=== PATIENT | female | born 1990 | race African-American/Black ===

== ENCOUNTER 2020-12-28 12:07 | Emergency (ER) | payer BC, SELFPAY ==
[2020-12-28] MEDS ORDERED: DIPHENHYDRAMINE 25 MG TAB/CAP ONE (13:25)
[2020-12-28] MEDS ORDERED: dexAMETHasone 10 MG/ML VIAL ONE (13:26)
[2020-12-28] MEDS ORDERED: FAMOTIDINE 20 MG TAB ONE (13:26)
--- NOTE | 2020-12-28 13:51 | EDPHYS ---
Physician Documentation [facility] Name: Tiffanie Hawkins Age: 30 yrs Sex: Female : 1990 Arrival Date: 12/28/2020 Time: 12:09 Bed Treatment Private MD: ED Physician Jodie Valdovinos HPI: 12/28 12:54 This 30 yrs old Black Female presents to ER via Ambulatory with complaints of Rash. pm1 12:54 The patient's rash thought to be caused by an unknown cause, Possibly from exposure to pm1 something at work. The rash is located on the face, right hand, left hand and back of neck. The rash can be described as papular, raised, vesicular. Onset: The symptoms/episode began/occurred 2 week(s) ago. Associated signs and symptoms: Pertinent positives: itching, Pertinent negatives: difficulty breathing, fever, swelling of lips, swelling of throat, swelling of tongue, vomiting, wheezing. Severity of symptoms: in the emergency department the symptoms are worse. Treatment given at home: OTC lotion/cream. The patient has not recently seen a physician. Historical: - Allergies: 12:19 No Known Allergies; aa5 - PMHx: 12:19 None; aa5 - PSHx: 12:19 None; L knee scope; aa5 - Immunization history:: Client reports receiving the 1st dose of the Covid vaccine. - Social history:: Smoking status: Patient reports the use of cigarette tobacco products, 2-3 cigarettes a day . ROS: 12:54 Constitutional: Negative for fever, chills, and weight loss. pm1 12:54 Cardiovascular: Negative for chest pain, palpitations, and edema, Respiratory: Negative for shortness of breath, cough, wheezing, and pleuritic chest pain, Abdomen/GI: Negative for abdominal pain, nausea, vomiting, diarrhea, and constipation. 12:54 Skin: Positive for rash, of the face, right hand, left hand and neck. 12:54 All other systems are negative. Exam: 12:54 Constitutional: This is a well developed, well nourished patient who is awake, alert, pm1 and in no acute distress. Head/Face: Normocephalic, atraumatic. 12:54 Eyes: Exam is negative for acute changes, Extraocular movements: no acute changes, Conjunctiva: no acute changes, no injection. 12:54 ENT: Mouth: Lips: normal, moist, Oral mucosa: normal, pink and intact, moist. 12:54 Cardiovascular: Exam negative for acute changes, Rate: normal, Rhythm: regular, Pulses: no pulse deficits are appreciated. 12:54 Respiratory: Exam negative for acute changes, respiratory distress, shortness of breath. 12:54 Skin: consistent with contact dermatitis, on the right hand, left hand and back of neck and face. 12:54 Neuro: Exam negative for acute changes, Orientation: is normal, Mentation: is normal, Motor: is normal, moves all fours, Gait: is steady, at a normal pace, without difficulty. Vital Signs: 12:20 BP 117 / 68; Pulse 76; Resp 18 S; Temp 98.0(TE); Pulse Ox 100% on R/A; Weight 90.72 kg aa5 (R); Height 5 ft. 7 in. (170.18 cm) (R); 12:20 Body Mass Index 31.32 (90.72 kg, 170.18 cm) aa5 MDM: 12:47 Patient medically screened. pm1 13:48 Data reviewed: vital signs. Data interpreted: Pulse oximetry: on room air is 100 %. pm1 Interpretation: normal. 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 Administered Medications: 13:07 Drug: Decadron (dexamethasone) 10 mg Route: IM; Site: left deltoid; jt3 13:07 Drug: Pepcid (famotidine) 20 mg Route: PO; jt3 13:07 Drug: Benadryl (diphenhydrAMINE) 25 mg Route: PO; jt3 Disposition: 12/29 08:49 Co-signature as Attending Physician, Jodie Valdovinos MD I agree with the assessment and sp3 plan of care. Disposition Summary: 12/28/20 13:50 Discharge Ordered Location: Home pm1 Problem: new pm1 Symptoms: have improved pm1 Condition: Stable pm1 Diagnosis - Rash and other nonspecific skin eruption pm1 Followup: pm1 - With: Emergency Department - When: As needed - Reason: Worsening of condition Followup: pm1 - With: Private Physician - When: 2 - 3 days - Reason: Recheck today's complaints, Continuance of care, Re-evaluation by your physician Discharge Instructions: - Discharge Summary Sheet pm1 - Rash, Adult pm1 Forms: - Medication Reconciliation Form pm1 - Thank You Letter pm1 - Antibiotic Education pm1 - Prescription Opioid Use pm1 Prescriptions: - Benadryl 25 mg Oral Capsule - take 1 capsule by ORAL route every 6 hours As needed; 30 tablet; Refills: 0, pm1 Product Selection Permitted - Pepcid 20 mg Oral Tablet - take 1 tablet by ORAL route every 12 hours for 10 days; 20 tablet; Refills: 0, pm1 Product Selection Permitted - Medrol (Adrien) 4 mg Oral Tablets, Dose Pack - take 1 tablet by ORAL route as directed - follow package instructions; 1 pm1 packet; Refills: 0, Product Selection Permitted Signatures: Arely Davidson, RN RN aa5 Honorio Mccormack NP [employer] pm1 Jodie Valdovinos MD MD sp3 Yung Menon RN RN jt3
--- NOTE | 2020-12-28 13:51 | ER ---
Nurse's Notes [facility] Name: Tiffanie Hawkins Age: 30 yrs Sex: Female : 1990 Arrival Date: 12/28/2020 Time: 12:09 Bed Treatment Private MD: Diagnosis: Rash and other nonspecific skin eruption Presentation: 12/28 12:19 Chief complaint: Patient states: "I've had this rash on my hands for about 2 weeks now aa5 and now it's spreading to my neck and my face and it's itching". Coronavirus screen: At this time, the client does not indicate any symptoms associated with coronavirus-19. Ebola Screen: No symptoms or risks identified at this time. Initial Sepsis Screen: Does the patient meet any 2 criteria? No. Patient's initial sepsis screen is negative. Does the patient have a suspected source of infection? No. Patient's initial sepsis screen is negative. Risk Assessment: Do you want to hurt yourself or someone else? Patient reports no desire to harm self or others. Onset of symptoms was December 2020. 12:19 Acuity: JACLYN 5 aa5 12:19 Method Of Arrival: Ambulatory aa5 Historical: - Allergies: 12:19 No Known Allergies; aa5 - PMHx: 12:19 None; aa5 - PSHx: 12:19 None; L knee scope; aa5 - Immunization history:: Client reports receiving the 1st dose of the Covid vaccine. - Social history:: Smoking status: Patient reports the use of cigarette tobacco products, 2-3 cigarettes a day . Screenin:38 Abuse screen: Denies threats or abuse. Denies injuries from another. Nutritional jt3 screening: No deficits noted. Tuberculosis screening: No symptoms or risk factors identified. Fall Risk None identified. Assessment: 12:38 Pain: Denies pain. Derm: Reports increased itching, Pt. has rash to bilateral hands jt3 inbetween her fingers. Pt. also has rash on neck and face. Bumps as well. Vital Signs: 12:20 BP 117 / 68; Pulse 76; Resp 18 S; Temp 98.0(TE); Pulse Ox 100% on R/A; Weight 90.72 kg aa5 (R); Height 5 ft. 7 in. (170.18 cm) (R); 12:20 Body Mass Index 31.32 (90.72 kg, 170.18 cm) aa5 ED Course: 12:09 Patient arrived in ED. as 12:19 Triage completed. aa5 12:19 Arm band placed on. aa5 12:24 Yung Menon, RN is Primary Nurse. jt3 12:34 Honorio Mccormack NP is PHCP. pm1 12:34 Jodie Valdovinos MD is Attending Physician. pm1 12:38 Patient has correct armband on for positive identification. Call light in reach. jt3 12:38 No provider procedures requiring assistance completed. jt3 Administered Medications: 13:07 Drug: Decadron (dexamethasone) 10 mg Route: IM; Site: left deltoid; jt3 13:07 Drug: Pepcid (famotidine) 20 mg Route: PO; jt3 13:07 Drug: Benadryl (diphenhydrAMINE) 25 mg Route: PO; jt3 Outcome: 13:50 Discharge ordered by MD. pm1 13:56 Discharged to home ambulatory. 5 13:56 Condition: improved 13:56 Discharge instructions given to Instructed on discharge instructions, Prescriptions given X 3. 13:56 Patient left the ED. ch5 Signatures: Tasha Welsh Audri, RN RN aa5 Honorio Mccormack NP [employer] CHIEF pm1 Bakari Golden RN RN ch5 Yung Menon RN RN jt3
[2020-12-28 14:28] VITALS: BP 117/68; TEMP 98; O2SAT 100
== END 2020-12-28 13:56 | disposition home or self-care (01) ==
LOC: ER 12:07
DX: R21 Rash and other nonspecific skin eruption (principal); F17.210 Nicotine dependence, cigarettes, uncomplicated
CPT/HCPCS: 96372; 99283; J1100